=== PATIENT | male | born 1975 | race Caucasian/White ===

== ENCOUNTER 2018-10-18 02:30 | Emergency (ER) | payer SELFPAY ==
[~2018-10-18] VITALS: Ht 162.6 cm; Wt 80.0 kg
[2018-10-18 02:31] VITALS: BP 144/91; PULSE 100; RESP 16; Ht 162.6 cm; Wt 80.0 kg
== END 2018-10-18 03:28 | disposition left against medical advice (07) ==
LOC: E/R 02:30
DX: Z53.21 Procedure and treatment not carried out due to patient leaving prior to being seen by health care provider (principal)